=== PATIENT | female | born 1945 | race Caucasian/White ===

== ENCOUNTER 2019-08-09 01:35 | Emergency (ER) | payer BC ==
[~2019-08-09] VITALS: Ht 154.9 cm; Wt 77.1 kg
--- OUTSIDE RECORDS SUMMARY | ~2019-08-09 | XMS | Encounter Summary ---
Demographics + + + | Address | [address] | | | [place] [address] | + + + | Home Phone | | + + + | Preferred Language | Unknown | + + + | Marital Status | | + + + | Christian Affiliation | 1041 | + + + | Race | Unknown | + + + | Ethnic Group | Unknown | + + + Author + + + | Author | [facility] | | | and [place] | + + + | Organization | [facility] | | | and [place] | + + + | Address | Unknown | + + + | Phone | Unavailable | + + + Support + + +---------+ + | Name | Relationship | Address | Phone | + + +---------+ + | Jong Barajas | ECON | Unknown | | + + +---------+ + Care Team Providers + +------+ + | Care Computer Systems Information Director Name | Role | Phone | + +------+ + PCP | Unavailable | + +------+ + Encounter Details +--------+ + + + + | Date | Type | Department | Care Team | Description | +--------+ + + + + | 03/16/ | Hospital | [facility] | | | | 1994 - | Encounter | MED CTR DIETARY | | | | | | [address] | | | | 06/14/ | | [place] [address] | | | | 1995 | | [phone] | | | +--------+ + + + + Social History + +-------+ +--------+------+ | Tobacco Use | Types | Packs/Day | Years | Date | | | | | Used | | + +-------+ +--------+------+ | Never Assessed | | | | | + +-------+ +--------+------+ + + + | Sex Assigned at | Date Recorded | | | | + + + | Not on file | | + + + + + + + | Job Start Date | Occupation | Industry | + + + + | Not on file | Not on file | Not on file | + + + + + + + + | Travel History | Travel Start | Travel End | + + + + + + | No recent travel history available. | + + documented as of this encounter Plan of Treatment Not on filedocumented as of this encounter Visit Diagnoses Not on filedocumented in this encounter"
--- OUTSIDE RECORDS SUMMARY | ~2019-08-09 | XMS | Encounter Summary ---
Demographics + + + | Address | [address] | | | [place] [address] | + + + | Home Phone | | + + + | Preferred Language | Unknown | + + + | Marital Status | | + + + | Advent Affiliation | 1041 | + + + | Race | Unknown | + + + | Ethnic Group | Unknown | + + + Author + + + | Author | [facility] | | | and [place] | + + + | Organization | [facility] | | | and [place] | [...] Team Providers + +------+ + | Care Security Expert Name | Role | Phone | + +------+ + PCP | Unavailable | + +------+ + Encounter Details +--------+ + + + + | Date | Type | Department | Care Team | Description | +--------+ + + + + | 01/23/ | Hospital | [facility] | Edu Arroyo | | | 2010 | Encounter | HOSPITAL OR INTRA OP | [address] | | | | | [address] [place] | [address] [place] | | | | | [place], [place] | [place] [address] | | | | | [address] | [phone] | | | | | [phone] | | | +--------+ + + + [...]
--- OUTSIDE RECORDS SUMMARY | ~2019-08-09 | XMS | Encounter Summary ---
Demographics + + + | Address | [address] | | | [place] [address] | + + + | Home Phone | | + + + | Preferred Language | Unknown | + + + | Marital Status | | + + + | Faith Affiliation | 1041 | + + + | Race | Unknown | + + + | Ethnic Group | Unknown | + + + Author + + + | Author | [facility] | | | and [place] | + + + | Organization | [facility] | | | and [place] [...] Team Providers + +------+ + | Care On Air Director Name | Role | Phone | + +------+ + PCP | Unavailable | + +------+ + Encounter Details +--------+ + + + + | Date | Type | Department | Care Team | Description | +--------+ + + + + | 08/12/ | Hospital | [facility] | | | | 2009 | Encounter | MED CTR LABORATORY | | | | | | [address] | | | | | | [place] | | | | | | [address] | | | | | | [phone] | | | +--------+ + + + [...]
--- OUTSIDE RECORDS SUMMARY | ~2019-08-09 | XMS | Encounter Summary ---
Demographics + + + | Address | [address] | | | [place] [address] | + + + | Home Phone | | + + + | Preferred Language | Unknown | + + + | Marital Status | | + + + | Nondenominational Affiliation | 1041 | + + + | Race | Unknown | + + + | Ethnic Group | Unknown | + + + Author + + + | Author | [facility] | | | and [place] | + + + | Organization | [facility] | | | and [...] Team Providers + +------+ + | Care Cross Country/Track And Field Coach Name | Role | Phone | + +------+ + PCP | Unavailable | + +------+ + Encounter Details +--------+ + + + + | Date | Type | Department | Care Team | Description | +--------+ + + + + | 01/04/ | Hospital | [facility] | Blair Miller | | | 1996 - | Encounter | MED CTR GENERIC OP | MD Sunny [address] | | | | | CONV DEPT [address] | [facility] | | | 04/04/ | | [place], | [place] [address] | | | 1996 | | [place] [address] | [phone] | | | | | [phone] | | | +--------+ + + + [...]
--- OUTSIDE RECORDS SUMMARY | ~2019-08-09 | XMS | Encounter Summary ---
Demographics + + + | Address | [address] | | | [place] [address] | + + + | Home Phone | | + + + | Preferred Language | Unknown | + + + | Marital Status | | + + + | Catholic Affiliation | 1041 | + + + | Race | Unknown | + + + | Ethnic Group | Unknown | + + + Author + + + | Author | [facility] | | | and [place] | + + + | Organization | [facility] | | | and [place] | + + + | Address | Unknown | + + + | Phone | Unavailable | + + + Support + + +---------+ + | Name | Relationship | Address | Phone | + + +---------+ + | Jnog Barajas | ECON | Unknown | | + + +---------+ + Care Team Providers + +------+ + | Care High Court Justice Name | Role | Phone | + +------+ + PCP | Unavailable | + +------+ + Encounter Details +--------+ + + + + | Date | Type | Department | Care Team | Description | +--------+ + + + + | 05/11/ | [facility] | [facility] | Blair Miller | | | 2004 | Encounter | MED CTR SLEEP | MD Sunny [address] | | | | | [place] [address] | [facility] | | | | | [place] | [place] [address] | | | | | [address] | [phone] | | | | | [phone] | | | +--------+ + + + [...]
--- OUTSIDE RECORDS SUMMARY | ~2019-08-09 | XMS | Encounter Summary ---
Demographics + + + | Address | [address] | | | [place] [address] | + + + | Home Phone | | + + + | Preferred Language | Unknown | + + + | Marital Status | | + + + | Mandaen Affiliation | 1041 | + + + | Race | Unknown | + + + | Ethnic Group | Unknown | + + + Author + + + | Author | [facility] | | | and [place] | + + + | Organization | [facility] | | | and [place] | [...] Team Providers + +------+ + | Care Medical Records Clerk Name | Role | Phone | + +------+ + PCP | Unavailable | + +------+ + Encounter Details +--------+ + + + + | Date | Type | Department | Care Team | Description | +--------+ + + + + | 08/09/ | [facility] | [facility] | Blair Miller | | | 1996 | Encounter | MED CTR SLEEP | MD Sunny [address] | | | | | [place] [address] | [facility] | | | | | [place] | [place] [address] | | | | | [address] | [phone] | | | | | [phone] | | | +--------+ + + + [...]
--- OUTSIDE RECORDS SUMMARY | ~2019-08-09 | XMS | Encounter Summary ---
Demographics + + + | Address | [address] | | | [place] [address] | + + + | Home Phone | | + + + | Preferred Language | Unknown | + + + | Marital Status | | + + + | Moravian Affiliation | 1041 | + + + | Race | Unknown | + + + | Ethnic Group | Unknown | + + + Author + + + | Author | [facility] | | | and [place] | + + + | Organization | [facility] | | | and [place] [...] Team Providers + +------+ + | Care Assistant Women'S Basketball Coach Name | Role | Phone | + +------+ + PCP | Unavailable | + +------+ + Encounter Details +--------+ + + + + | Date | Type | Department | Care Team | Description | +--------+ + + + + | 02/18/ | [facility] | [facility] | [place], | | | 2008 | Encounter | MED CTR XRAY [address] | [address] [facility] | | | | | [address] | [place] | | | | | [place] [address] | [address] | | | | | [phone] | | | +--------+ + + + [...]
--- OUTSIDE RECORDS SUMMARY | ~2019-08-09 | XMS | Encounter Summary ---
Demographics + + + | Address | [address] | | | [place] [address] | + + + | Home Phone | | + + + | Preferred Language | Unknown | + + + | Marital Status | | + + + | Jewish Affiliation | 1041 | + + + | Race | Unknown | + + + | Ethnic Group | Unknown | + + + Author + + + | Author | [facility] | | | and [place] | + + + | Organization | [facility] | | | and [place] | [...] Team Providers + +------+ + | Care Equipment Operator Intermodal Yard Name | Role | Phone | + +------+ + PCP | Unavailable | + +------+ + Encounter Details +--------+ + + + + | Date | Type | Department | Care Team | Description | +--------+ + + + + | 12/16/ | Abstract | [facility] | DATA MIGRATION SERGIO | | | 2011 | | Conversion Location | SR | | | | | [facility] | | | | | | [place], [place] | | | | | | [address] | | | | | | [phone] | | | +--------+ + + + [...] + + documented as of this encounter Last Filed Vital Signs + + + + + | Vital Sign | Reading | Time Taken | Comments | + + + + + | Blood Pressure | - | - | | + + + + + | Pulse | - | - | | + + + + + | Temperature | - | - | | + + + + + | Respiratory Rate | - | - | | + + + + + | Oxygen Saturation | - | - | | + + + + + | Inhaled Oxygen | - | - | | | Concentration | | | | + + + + + | Weight | 83.9 kg (185 lb) | 12/04/2009 12:00 AM | | | | | PDT | | + + + + + | Height | 154.9 cm (5' 1") | 05/22/2009 12:00 AM | | | | | PST | | + + + + + | Body Mass Index | 34.96 | 05/22/2009 12:00 AM | | | | | PST | | + + + + + documented in this encounter Plan of Treatment Not on filedocumented as of this encounter Visit Diagnoses Not on filedocumented in this encounter
--- OUTSIDE RECORDS SUMMARY | ~2019-08-09 | XMS | Encounter Summary ---
Demographics + + + | Address | [address] | | | [place] [address] | + + + | Home Phone | | + + + | Preferred Language | Unknown | + + + | Marital Status | | + + + | Yazidi Affiliation | 1041 | + + + | Race | Unknown | + + + | Ethnic Group | Unknown | + + + Author + + + | Author | [facility] | | | and [place] | + + + | Organization | [facility] | | | and [place] | [...] Team Providers + +------+ + | Care Tannery Worker Name | Role | Phone | + +------+ + PCP | Unavailable | + +------+ + Encounter Details +--------+ + + + + | Date | Type | Department | Care Team | Description | +--------+ + + + + | 06/19/ | [facility] | [facility] | [place], | | | 2009 | Encounter | MED CTR XRAY [address] | [address] [facility] | | | | | [address] | [place] | | | | | [place] [address] | [address] | | | | | [phone] | | | +--------+ + + + [...]
--- OUTSIDE RECORDS SUMMARY | ~2019-08-09 | XMS | Clinical Summary ---
Demographics + + + | Address | [address] | | | [place] [address] | + + + | Home Phone | | + + + | Preferred Language | Unknown | + + + | Marital Status | | + + + | Anabaptism Affiliation | 1041 | + + + | Race | Unknown | + + + | Ethnic Group | Unknown | + + + Author + + + | Author | [facility] | | | and [place] | + + + | Organization | [facility] | | | and [...] Team Providers + +------+ + | Care Vitreo Retinal Surgeon Name | Role | Phone | + +------+ + PCP | Unavailable | + +------+ + Allergies + + + +--------+ + | Active Allergy | Reactions | Severity | Noted | Comments | | | | | Date | | + + + +--------+ + | Adhesive & Tape | | | | | + + + +--------+ + | Prochlorperazine | | | | | + + + +--------+ + Medications Not on file Active Problems Not on file Social History + +-------+ +--------+------+ | Tobacco [...] recent travel history available. | + + Last Filed Vital Signs + + + [...] | | + + + + + Plan of Treatment + + + + + | Health Maintenance | Due Date | Last Done | Comments | + + + + + | Vaccine: | | | | | Dtap/Tdap/Td (1 - | 4 | | | | Tdap) | | | | + + + + + | Vaccine: Zoster (1 | | | | | of 2) | 3 | | | + + + + + | Breast Cancer | | | | | Screening | 8 | | | + + + + + | Vaccine: | | | | | Pneumococcal 65+ (1 | 8 | | | | of 2 - PCV13) | | | | + + + + + | Vaccine: Influenza | | | | | (Season Ended) | 0 | | | + + + + + Results Not on filefrom Last 3 Months
--- OUTSIDE RECORDS SUMMARY | ~2019-08-09 | XMS | Encounter Summary ---
Demographics + + + | Address | [address] | | | [place] [address] | + + + | Home Phone | | + + + | Preferred Language | Unknown | + + + | Marital Status | | + + + | Jain Affiliation | 1041 | + + + | Race | Unknown | + + + | Ethnic Group | Unknown | + + + Author + + + | Author | [facility] | | | and [place] | + + + | Organization | [facility] | | | and [place] | + [...] Team Providers + +------+ + | Care Airline Manager Name | Role | Phone | + +------+ + PCP | Unavailable | + +------+ + Encounter Details +--------+ + + + + | Date | Type | Department | Care Team | Description | +--------+ + + + + | 03/27/ | [facility] | [facility] | [place], | | | 2008 | Encounter | MED CTR XRAY [address] | [address] [facility] | | | | | [address] | [place] | | | | | [place] [address] | [address] | | | | | [phone] | | | +--------+ + + + [...]
--- OUTSIDE RECORDS SUMMARY | ~2019-08-09 | XMS | Encounter Summary ---
Demographics + + + | Address | [address] | | | [place] [address] | + + + | Home Phone | | + + + | Preferred Language | Unknown | + + + | Marital Status | | + + + | Sikh Affiliation | 1041 | + + + | Race | Unknown | + + + | Ethnic Group | Unknown | + + + Author + + + | Author | [facility] | | | and [place] | + + + | Organization | [facility] | | | and [place] [...] Team Providers + +------+ + | Care Gerontological Nurse Practitioner Name | Role | Phone | + +------+ + PCP | Unavailable | + +------+ + Encounter Details +--------+ + + + + | Date | Type | Department | Care Team | Description | +--------+ + + + + | 08/28/ | [facility] | [facility] | [place], | | | 2009 | Encounter | MED CTR XRAY [address] | [address] [facility] | | | | | [address] | [place] | | | | | [place] [address] | [address] | | | | | [phone] | | | +--------+ + + + [...]
--- OUTSIDE RECORDS SUMMARY | ~2019-08-09 | XMS | Encounter Summary ---
Demographics + + + | Address | [address] | | | [place] [address] | + + + | Home Phone | | + + + | Preferred Language | Unknown | + + + | Marital Status | | + + + | Oriental Orthodox Affiliation | 1041 | + + + | Race | Unknown | + + + | Ethnic Group | Unknown | + + + Author + + + | Author | [facility] | | | and [place] | + + + | Organization | [facility] | | | and [place] [...] Team Providers + +------+ + | Care Homicide Detective Name | Role | Phone | + +------+ + PCP | Unavailable | + +------+ + Encounter Details +--------+ + + + + | Date | Type | Department | Care Team | Description | +--------+ + + + + | 01/13/ | Hospital | [facility] | Edu Arroyo | | | 2010 | Encounter | HOSPITAL LABORATORY | [address] | | | | | [address] [place] | [address] [place] | | | | | [place] | [place] [address] | | | | | [address] | [phone] | | | | | [phone] | | | +--------+ + + + [...]
--- OUTSIDE RECORDS SUMMARY | ~2019-08-09 | XMS | Encounter Summary ---
Demographics + + + | Address | [address] | | | [place] [address] | + + + | Home Phone | | + + + | Preferred Language | Unknown | + + + | Marital Status | | + + + | Latter Day Affiliation | 1041 | + + + | Race | Unknown | + + + | Ethnic Group | Unknown | + + + Author + + + | Author | [facility] | | | and [place] | + + + | Organization | [facility] | | | and [...] Team Providers + +------+ + | Care Sed Special Education Teacher Name | Role | Phone | + +------+ + PCP | Unavailable | + +------+ + Encounter Details +--------+ + + + + | Date | Type | Department | Care Team | Description | +--------+ + + + + | 05/12/ | [facility] | [facility] | Blair Miller | | | 2004 | Encounter | MED CTR SLEEP | MD Sunny [address] | | | | | [place] [address] | [place] [facility] | | | | | [place] | [place] [address] | | | | | [address] | [phone] | | | | | [phone] | | | +--------+ + + + [...]
--- OUTSIDE RECORDS SUMMARY | ~2019-08-09 | XMS | Encounter Summary ---
Demographics + + + | Address | [address] | | | [place] [address] | + + + | Home Phone | | + + + | Preferred Language | Unknown | + + + | Marital Status | | + + + | Church Affiliation | 1041 | + + + | Race | Unknown | + + + | Ethnic Group | Unknown | + + + Author + + + | Author | [facility] | | | and [place] | + + + | Organization | [facility] | | | and [place] [...] Team Providers + +------+ + | Care Pensions Retirement Plan Specialist Name | Role | Phone | + +------+ + PCP | Unavailable | + +------+ + Encounter Details +--------+ + + + + | Date | Type | Department | Care Team | Description | +--------+ + + + + | 04/02/ | Hospital | [facility] | [place], | | | 2008 - | Encounter | MED CTR GENERIC IP | MD [address] [facility] | | | | | CONV DEPT [address] | [place] | | | 04/05/ | | [place], | [address] | | | 2009 | | [place] [address] | | | | | | [phone] | | | +--------+ + + + [...]
--- OUTSIDE RECORDS SUMMARY | ~2019-08-09 | XMS | Encounter Summary ---
Demographics + + + | Address | [address] | | | [place] [address] | + + + | Home Phone | | + + + | Preferred Language | Unknown | + + + | Marital Status | | + + + | Confucianism Affiliation | 1041 | + + + | Race | Unknown | + + + | Ethnic Group | Unknown | + + + Author + + + | Author | [facility] | | | and [place] | + + + | Organization | [facility] | | | and [place] [...] Team Providers + +------+ + | Care Spray Crew Name | Role | Phone | + [...] | | [place] | [place] [address] | | | | | [address] | [phone] | | | | | [phone] | | | +--------+ + + + [...]
--- OUTSIDE RECORDS SUMMARY | ~2019-08-09 | XMS | Encounter Summary ---
Demographics + + + | Address | [address] | | | [place] [address] | + + + | Home Phone | | + + + | Preferred Language | Unknown | + + + | Marital Status | | + + + | Hinduism Affiliation | 1041 | + + + | Race | Unknown | + + + | Ethnic Group | Unknown | + + + Author + + + | Author | [facility] | | | and [place] | + + + | Organization | [facility] | | | and [place] [...] Team Providers + +------+ + | Care Chief Crna Name | Role | Phone | + +------+ + PCP | Unavailable | + +------+ + Encounter Details +--------+ + + + + | Date | Type | Department | Care Team | Description | +--------+ + + + + | 07/14/ | [facility] | [facility] | [place], | | | 2007 | Encounter | MED CTR XRAY [address] | [address] [facility] | | | | | [address] | [place] | | | | | [place] [address] | [address] | | | | | [phone] | | | +--------+ + + + [...]
--- OUTSIDE RECORDS SUMMARY | ~2019-08-09 | XMS | Encounter Summary ---
Demographics + + + | Address | [address] | | | [place] [address] | + + + | Home Phone | | + + + | Preferred Language | Unknown | + + + | Marital Status | | + + + | Restoration Affiliation | 1041 | + + + | Race | Unknown | + + + | Ethnic Group | Unknown | + + + Author + + + | Author | [facility] | | | and [place] | + + + | Organization | [facility] | | | and [place] [...] Team Providers + +------+ + | Care Resistor Coater Name | Role | Phone | + +------+ + PCP | Unavailable | + +------+ + Encounter Details +--------+ + + + + | Date | Type | Department | Care Team | Description | +--------+ + + + + | 07/26/ | [facility] | [facility] | Blair Miller | | | 1996 | Encounter | MED CTR SLEEP | MD Sunny [address] | | | | | [place] [address] [place] | [place] [facility] | | | | | [place] | [place] [address] | | | | | [address] | [phone] | | | | | [phone] | | | +--------+ + + + [...]
--- OUTSIDE RECORDS SUMMARY | ~2019-08-09 | XMS | Encounter Summary ---
Demographics + + + | Address | [address] | | | [place] [address] | + + + | Home Phone | | + + + | Preferred Language | Unknown | + + + | Marital Status | | + + + | Hindu Affiliation | 1041 | + + + | Race | Unknown | + + + | Ethnic Group | Unknown | + + + Author + + + | Author | [facility] | | | and [place] | + + + | Organization | [facility] and [facility] | | | and [place] [...] Team Providers + +------+ + | Care Wage And Salary Administrator Name | Role | Phone | + +------+ + PCP | Unavailable | + +------+ + Encounter Details +--------+ + + + + | Date | Type | Department | Care Team | Description | +--------+ + + + + | 03/30/ | [facility] | [place] | [place], | | | 2006 | Encounter | MED CTR LABORATORY | [facility] | | | | | [address] | [place] | | | | | [place] | [id number] | | | | | [address] | | | | | | [phone] | | | +--------+ + + + [...]
--- OUTSIDE RECORDS SUMMARY | ~2019-08-09 | XMS | Encounter Summary ---
Demographics + + + | Address | [address] | | | [place] [address] | + + + | Home Phone | | + + + | Preferred Language | Unknown | + + + | Marital Status | | + + + | Uatsdin Affiliation | 1041 | + + + | Race | Unknown | + + + | Ethnic Group | Unknown | + + + Author + + + | Author | [facility] | | | and [place] | + + + | Organization | [facility] | | | and [place] | + + + | Address | Unknown | + + + | Phone | Unavailable | + + + Support + + +---------+ + | Name | Relationship | Address | Phone | + + +---------+ + | Jong Baarjas | ECON | Unknown | | + + +---------+ + Care Team Providers + +------+ + | Care Boring Machine Operator Helper Name | Role | Phone | + +------+ + PCP | Unavailable | + +------+ + Encounter Details +--------+ + + + + | Date | Type | Department | Care Team | Description | +--------+ + + + + | 07/24/ | Hospital | [facility] | Dat [place]id[place], | | | 2009 | Encounter | MED CTR LABORATORY | MD Peters [facility] | | | | | [address] | [place] | | | | | [place] | [id number] | | | | | [address] | | | | | | [phone] | | | +--------+ + + + [...]
--- OUTSIDE RECORDS SUMMARY | ~2019-08-09 | XMS | Encounter Summary ---
Demographics + + + | Address | [address] | | | [place] [address] | + + + | Home Phone | | + + + | Preferred Language | Unknown | + + + | Marital Status | | + + + | Pentecostal Affiliation | 1041 | + + + | Race | Unknown | + + + | Ethnic Group | Unknown | + + + Author + + + | Author | [facility] | | | and [place] | + + + | Organization | [facility] | | | and [...] Team Providers + +------+ + | Care Lead Java J2Ee Developer Name | Role | Phone | + +------+ + PCP | Unavailable | + +------+ + Encounter Details +--------+ + + + + | Date | Type | Department | Care Team | Description | +--------+ + + + + | 05/11/ | [facility] | [facility] | Blair Miller | | | 2004 | Encounter | MED CTR SLEEP | MD [address] | | | | | [place] [address] | [place] [facility] | | | | | [place] | [place] [address] | | | | | [address] | [phone] | | | | | [phone] | | | +--------+ + + + [...]
--- OUTSIDE RECORDS SUMMARY | ~2019-08-09 | XMS | Encounter Summary ---
Demographics + + + | Address | [address] | | | [place] [address] | + + + | Home Phone | | + + + | Preferred Language | Unknown | + + + | Marital Status | | + + + | Anabaptist Affiliation | 1041 | + + + | Race | Unknown | + + + | Ethnic Group | Unknown | + + + Author + + + | Author | [facility] | | | and [place] | + + + | Organization | [facility] | | | and [...] Team Providers + +------+ + | Care Tricot Knitter Name | Role | Phone | + +------+ + PCP | Unavailable | + +------+ + Encounter Details +--------+ + + + + | Date | Type | Department | Care Team | Description | +--------+ + + + + | 07/30/ | Hospital | [facility] | [place], | | | 2009 - | Encounter | MED CTR GENERIC IP | MD [address] [facility] | | | | | CONV DEPT [address] | [place] | | | 08/02/ | | [address], | [address] | | | 2009 | | [place] [address] | | | | | | [phone] | | | +--------+ + + + [...]
--- OUTSIDE RECORDS SUMMARY | ~2019-08-09 | XMS | Encounter Summary ---
Demographics + + + | Address | [address] | | | [place] [address] | + + + | Home Phone | | + + + | Preferred Language | Unknown | + + + | Marital Status | | + + + | Christian Affiliation | 1041 | + + + | Race | Unknown | + + + | Ethnic Group | Unknown | + + + Author + + + | Author | [facility] | | | and [place] | + + + | Organization | [facility] | | | and [place] [...] Team Providers + +------+ + | Care Staking Engineer Name | Role | Phone | + +------+ + PCP | Unavailable | + +------+ + Encounter Details +--------+ + + + + | Date | Type | Department | Care Team | Description | +--------+ + + + + | 08/28/ | [facility] | [facility] | [place], | | | 2009 | Encounter | MED CTR XRAY [address] | [address] [facility] | | | | | [address] | [place] | | | | | [place] [address] | [address] | | | | | [phone] | | | +--------+ + + + [...]
--- OUTSIDE RECORDS SUMMARY | ~2019-08-09 | XMS | Encounter Summary ---
Demographics + + + | Address | [address] | | | [place] [address] | + + + | Home Phone | | + + + | Preferred Language | Unknown | + + + | Marital Status | | + + + | Adventism Affiliation | 1041 | + + + | Race | Unknown | + + + | Ethnic Group | Unknown | + + + Author + + + | Author | [facility] | | | and [place] | + + + | Organization | [facility] | [...] Team Providers + +------+ + | Care Rectangular Tank Cooper Name | Role | Phone | + +------+ + PCP | Unavailable | + +------+ + Encounter Details +--------+ + + + + | Date | Type | Department | Care Team | Description | +--------+ + + + + | 04/15/ | Hospital | [facility] | | | | 2009 | Encounter | MED CTR LABORATORY | | | | | | [address] | | | | | | [place] | | | | | | [address] | | | | | | [phone] | | | +--------+ + + + [...]
--- OUTSIDE RECORDS SUMMARY | ~2019-08-09 | XMS | Encounter Summary ---
Demographics + + + | Address | [address] | | | [place] [address] | + + + | Home Phone | | + + + | Preferred Language | Unknown | + + + | Marital Status | | + + + | Yarsani Affiliation | 1041 | + + + | Race | Unknown | + + + | Ethnic Group | Unknown | + + + Author + + + | Author | [facility] | | | and [place] | + + + | Organization | [facility] | | | and [place] [...] Team Providers + +------+ + | Care Yarn Texture Machine Operator Name | Role | Phone | + +------+ + PCP | Unavailable | + +------+ + Encounter Details +--------+ + + + + | Date | Type | Department | Care Team | Description | +--------+ + + + + | 02/18/ | [facility] | [facility] | [place], | | | 2008 | Encounter | MED CTR XRAY [address] | [address] [facility] | | | | | [address] | [place] | | | | | [place] [address] | [address] | | | | | [phone] | | | +--------+ + + + [...]
--- OUTSIDE RECORDS SUMMARY | ~2019-08-09 | XMS | Clinical Summary ---
Demographics + + + | Address | [address] | | | [place] [address] | + + + | Home Phone | | + + + | Preferred Language | Unknown | + + + | Marital Status | | + + + | Scientologist Affiliation | 1041 | + + + | Race | Unknown | + + + | Ethnic Group | Unknown | + + + Author + + + | Author | [facility] | | | and [place] | + + + | Organization | [facility] | | | and [place] | [...] Team Providers + +------+ + | Care Entry Level Project Engineer Name | Role | Phone | [...]
--- OUTSIDE RECORDS SUMMARY | ~2019-08-09 | XMS | Encounter Summary ---
Demographics + + + | Address | [address] | | | [place] [address] | + + + | Home Phone | | + + + | Preferred Language | Unknown | + + + | Marital Status | | + + + | Spiritism Affiliation | 1041 | + + + | Race | Unknown | + + + | Ethnic Group | Unknown | + + + Author + + + | Author | [facility] | | | and [place] | + + + | Organization | [facility] | | | and [...] Team Providers + +------+ + | Care Pmo Business Analyst Name | Role | Phone | + +------+ + PCP | Unavailable | + +------+ + Encounter Details +--------+ + + + + | Date | Type | Department | Care Team | Description | +--------+ + + + + | 02/03/ | Hospital | [facility] | Taras Amezcua, | | | 2003 | Encounter | HEART MED CTR | MD [address] | | | | | LABORATORY [address] | [address] [address] | | | | | [address] [place], [place] | [address] | | | | | [address] | [phone] | | | | | [phone] | | | +--------+ + + + [...]
--- OUTSIDE RECORDS SUMMARY | ~2019-08-09 | XMS | Encounter Summary ---
Demographics + + + | Address | [address] | | | [place] [address] | + + + | Home Phone | | + + + | Preferred Language | Unknown | + + + | Marital Status | | + + + | Mu-Ism Affiliation | 1041 | + + + | Race | Unknown | + + + | Ethnic Group | Unknown | + + + Author + + + | Author | [facility] | | | and [place] | + + + | Organization | [facility] | [...] Team Providers + +------+ + | Care Development Administrator Name | Role | Phone | + +------+ + PCP | Unavailable | + +------+ + Encounter Details +--------+ + + + + | Date | Type | Department | Care Team | Description | +--------+ + + + + | 06/19/ | [facility] | [facility] | [place], | | | 2009 | Encounter | MED CTR XRAY [address] | [address] [facility] | | | | | [address] | [place] | | | | | [place] [address] | [address] | | | | | [phone] | | | +--------+ + + + [...]
--- OUTSIDE RECORDS SUMMARY | ~2019-08-09 | XMS | Encounter Summary ---
Demographics + + + | Address | [address] | | | [place] [address] | + + + | Home Phone | | + + + | Preferred Language | Unknown | + + + | Marital Status | | + + + | Mosque Affiliation | 1041 | + + + | Race | Unknown | + + + | Ethnic Group | Unknown | + + + Author + + + | Author | [facility] | | | and [place] | + + + | Organization | [facility] | | | and [...] Team Providers + +------+ + | Care Flow Manager Name | Role | Phone | + +------+ + PCP | Unavailable | + +------+ + Encounter Details +--------+ + + + + | Date | Type | Department | Care Team | Description | +--------+ + + + + | 04/08/ | Hospital | [facility] | Taras Moy, | | | 2004 - | Encounter | HEART MED CTR | MD [address] | | | | | ORTHOPEDICS [address] | [address] [place] | | | 04/12/ | | [address] [place], [place] | [address] | | | 2004 | | [address] | [phone] | | | | | [phone] | | | +--------+ + + + [...] Not on filedocumented as of this encounter Procedures + +--------+ + + + | Procedure Name | Priori | Date/Time | Associated Diagnosis | Comments | | | ty | | | | + +--------+ + + + | SURGICAL PATHOLOGY | Routin | 04/08/2004 | | Results for this | | EXAM | e | 12:00 AM | | procedure are in the | | | | PST | | results section. | + +--------+ + + + documented in this encounter Results Surgical Pathology Exam (04/08/2004 12:00 AM PST) + + | Specimen | + + | | + + + + + | Narrative | Performed At | + + + | SURGICAL PATHOLOGY REPORT | [facility] | | Date Taken: 04/08/2004 Date Received: 04/08/2004 | | | Completed: 04/09/2004 Physician: TARAS MOY Copy to: | | | DIAGNOSIS: Cholecystectomy: Chronic cholecystitis. 0 Chad | | | Cristela Sierra M.D. Electronic signature GROSS DESCRIPTION: The | | | specimen labeled "gallbladder" is received in formalin and consists | | | of a 7.2 x 2.0 x 1.1 cm pink-villalobos to extensively violaceous collapsed | | | gallbladder with a glistening wrinkled serosa. The gallbladder wall | | | is pliable up to 0.2 cm in thickness and is lined by a dark | | | orange-villalobos extensively hemorrhagic mucosa. No stones are | | | identified. Card Assembler sections in one block. (PK) | | | 1: [address] [address] [address] [place] [address] (536) | | | [phone] or Testing performed at: [place] | | | [facility] Bill Solano M.D., | | | Director [address] [place] [address] [address] [place] [address] Phone: | | | | | + + + + + + + + | Performing | Address | City/State/Zipcode | Phone Number | | Organization | | | | + + + + + | [facility] | [address] [place] [address]. | [place] [address] | | | [facility] | | | | | LABORATORY | | | | + + + + + | [place] | | | | + + + + + documented in this encounter Visit Diagnoses Not on filedocumented in this encounter
--- OUTSIDE RECORDS SUMMARY | ~2019-08-09 | XMS | Encounter Summary ---
Demographics + + + | Address | [address] | | | [place] [address] | + + + | Home Phone | | + + + | Preferred Language | Unknown | + + + | Marital Status | | + + + | Zoroastrian Affiliation | 1041 | + + + | Race | Unknown | + + + | Ethnic Group | Unknown | + + + Author + + + | Author | [facility] | | | and [place] | + + + | Organization | [facility] | | | and [place] [...] Team Providers + +------+ + | Care Charge Master Coordinator Name | Role | Phone | + +------+ + PCP | Unavailable | + +------+ + Encounter Details +--------+ + + + + | Date | Type | Department | Care Team | Description | +--------+ + + + + | 01/04/ | Hospital | [facility] | Blair Miller | | | 1996 - | Encounter | MED CTR GENERIC OP | MD Sunny [address] | | | | | CONV DEPT [address] | [place] [facility] | | | 04/04/ | | [place], | [place] [address] | | | 1996 | | [place] [address] | [phone] | | | | | [phone] | | | +--------+ + + + [...]
--- OUTSIDE RECORDS SUMMARY | ~2019-08-09 | XMS | Encounter Summary ---
Demographics + + + | Address | [address] | | | [place] [address] | + + + | Home Phone | | + + + | Preferred Language | Unknown | + + + | Marital Status | | + + + | Religion Affiliation | 1041 | + + + | Race | Unknown | + + + | Ethnic Group | Unknown | + + + Author + + + | Author | [facility] | | | and [place] | + + + | Organization | [facility] | | | and [...] Team Providers + +------+ + | Care Supervisor Laboratory Animal Facility Name | Role | Phone | + +------+ + PCP | Unavailable | + +------+ + Encounter Details +--------+ + + + + | Date | Type | Department | Care Team | Description | +--------+ + + + + | 02/24/ | Hospital | [facility] | Aubrey Langford, | | | 1990 - | Encounter | SYSTEM GENERIC OP | MD [address] [facility] | | | | | CONVERSION [address] | [address] [place], | | | 02/25/ | | [address] [place], [place] | [place] [address] | | | 1990 | | [address] | [phone] | | | | | [phone] | (Fax) | | +--------+ + + + + [...]
--- OUTSIDE RECORDS SUMMARY | ~2019-08-09 | XMS | Encounter Summary ---
Demographics + + + | Address | [address] | | | [place] [address] | + + + | Home Phone | | + + + | Preferred Language | Unknown | + + + | Marital Status | | + + + | Orthodoxy Affiliation | 1041 | + + + | Race | Unknown | + + + | Ethnic Group | Unknown | + + + Author + + + | Author | [facility] | | | and [place] | + + + | Organization | [facility] | | | and [place] [...] Providers + +------+ + | Care Chief Psychology Name | Role | Phone | + +------+ + PCP | Unavailable | + +------+ + Encounter Details +--------+ + + + + | Date | Type | Department | Care Team | Description | +--------+ + + + + | 02/24/ | Hospital | [facility] | Aubrey Langford, | | | 1990 - | Encounter | SYSTEM GENERIC OP | MD [address] [facility] | | | | | CONVERSION [address] | [address] [place], | | | 02/25/ | | [address] [place], [place] | [place] [address] | | | 1992 | | [address] | [phone] | | | | | [phone] | (Fax) | | +--------+ + + [...]
--- OUTSIDE RECORDS SUMMARY | ~2019-08-09 | XMS | Encounter Summary ---
Demographics + + + | Address | [address] | | | [place] [address] | + + + | Home Phone | | + + + | Preferred Language | Unknown | + + + | Marital Status | | + + + | Mandaen Affiliation | 1041 | + + + | Race | Unknown | + + + | Ethnic Group | Unknown | + + + Author + + + | Author | [facility] | | | and [place] | + + + | Organization | [facility] | | | and [place] | [...] Team Providers + +------+ + | Care Materials Scientist Name | Role | Phone | + +------+ + PCP | Unavailable | + +------+ + Encounter Details +--------+ + + + + | Date | Type | Department | Care Team | Description | +--------+ + + + + | 07/24/ | Hospital | [facility] | Dat Isidro, | | | 2009 | Encounter | MED CTR LABORATORY | MD Peters [facility] | | | | | [address] | [place] | | | | | [place] | [address] | | | | | [address] | | | | | | [phone] | | | +--------+ + + + [...]
--- OUTSIDE RECORDS SUMMARY | ~2019-08-09 | XMS | Encounter Summary ---
Demographics + + + | Address | [address] | | | [place] [address] | + + + | Home Phone | | + + + | Preferred Language | Unknown | + + + | Marital Status | | + + + | Synagogue Affiliation | 1041 | + + + | Race | Unknown | + + + | Ethnic Group | Unknown | + + + Author + + + | Author | [facility] | | | and [place] | + + + | Organization | [facility] | | | and [place] [...] Team Providers + +------+ + | Care Carbon Furnace Operator Name | Role | Phone | + +------+ + PCP | Unavailable | + +------+ + Encounter Details +--------+ + + + + | Date | Type | Department | Care Team | Description | +--------+ + + + + | 07/26/ | [facility] | [facility] | Blair Miller | | | 1996 | Encounter | MED CTR SLEEP | MD [address] | | | | | [place] [address] [place] | [place] [facility] | | | | | [place] | [place] [address] | | | | | [address] | [phone] | | | | | [phone] | | | +--------+ + + + [...]
--- OUTSIDE RECORDS SUMMARY | ~2019-08-09 | XMS | Encounter Summary ---
Demographics + + + | Address | [address] | | | [place] [address] | + + + | Home Phone | | + + + | Preferred Language | Unknown | + + + | Marital Status | | + + + | Yazidi Affiliation | 1041 | + + + | Race | Unknown | + + + | Ethnic Group | Unknown | + + + Author + + + | Author | [facility] | | | and [place] | + + + | Organization | [facility] | | | and [place] [...] Team Providers + +------+ + | Care Wound Specialist Name | Role | Phone | + +------+ + PCP | Unavailable | + +------+ + Encounter Details +--------+ + + + + | Date | Type | Department | Care Team | Description | +--------+ + + + + | 08/12/ | Hospital | [facility] | | | | 2009 | Encounter | MED CTR LABORATORY | | | | | | [address] | | | | | | [place] | | | | | | [address] | | | | | | [phone] | | | +--------+ + + + [...]
--- OUTSIDE RECORDS SUMMARY | ~2019-08-09 | XMS | Encounter Summary ---
Demographics + + + | Address | [address] | | | [place] [address] | + + + | Home Phone | | + + + | Preferred Language | Unknown | + + + | Marital Status | | + + + | Jew Affiliation | 1041 | + + + | Race | Unknown | + + + | Ethnic Group | Unknown | + + + Author + + + | Author | and [facility] | | | and [place] | + + + | Organization | [facility] | | | and [place] [...] Team Providers + +------+ + | Care Pecan Gatherer Name | Role | Phone | + +------+ + PCP | Unavailable | + +------+ + Encounter Details +--------+ + + + + | Date | Type | Department | Care Team | Description | +--------+ + + + + | 02/03/ | Hospital | [facility] | Taras Amezcua, | | | 2003 | Encounter | HEART MED CTR | MD [address] | | | | | LABORATORY [address] | [address] [place] | | | | | [address] [place], [place] | [address] | | | | | [address] | [phone] | | | | | [phone] | | | +--------+ + + + [...]
--- OUTSIDE RECORDS SUMMARY | ~2019-08-09 | XMS | Encounter Summary ---
Demographics + + + | Address | [address] | | | [place] [address] | + + + | Home Phone | | + + + | Preferred Language | Unknown | + + + | Marital Status | | + + + | Samaritan Affiliation | 1041 | + + + | Race | Unknown | + + + | Ethnic Group | Unknown | + + + Author + + + | Author | [facility] | | | and [place] | + + + | Organization | [facility] | | | and [place] | [...] Team Providers + +------+ + | Care Adult Probation Officer Name | Role | Phone | + +------+ + PCP | Unavailable | + +------+ + Encounter Details +--------+ + + + + | Date | Type | Department | Care Team | Description | +--------+ + + + + | 01/04/ | [facility] | [facility] | Blair Miller | | | 1996 | Encounter | MED CTR SLEEP | MD [address] | | | | | [place] [address] | [place] [facility] | | | | | [place] | [place] [address] | | | | | [address] | [phone] | | | | | [phone] | | | +--------+ + + + [...]
--- OUTSIDE RECORDS SUMMARY | ~2019-08-09 | XMS | Encounter Summary ---
Demographics + + + | Address | [address] | | | [place] [address] | + + + | Home Phone | | + + + | Preferred Language | Unknown | + + + | Marital Status | | + + + | Protestant Affiliation | 1041 | + + + | Race | Unknown | + + + | Ethnic Group | Unknown | + + + Author + + + | Author | [facility] | | | and [place] | + + + | Organization | [facility] | | | and [...] Team Providers + +------+ + | Care Systems Mechanic Name | Role | Phone | + +------+ + PCP | Unavailable | + +------+ + Encounter Details +--------+ + + + + | Date | Type | Department | Care Team | Description | +--------+ + + + + | 04/08/ | Hospital | [facility] | Taras Moy, | | | 2004 - | Encounter | HEART MED CTR | MD [address] | | | | | ORTHOPEDICS [address] | [address] [place] | | | 04/12/ | | [address] [place], [place] | [address] | | | 2004 | | [address] | [phone] | | | | | [phone] | | | +--------+ + + + [...] | SURGICAL PATHOLOGY REPORT | [facility] | | Date Taken: 04/08/2004 Date Received: [...] No stones are | | | identified. Footwear Sales Leader sections in one block. (PK) | | | 1: [address] [address] [address] [place] [address] (562) | | | [phone] or Testing performed at: [place] | | | [facility] Bill Solano M.D., | | | Director [address] [place] [address] [address] [place] [address] Phone: | | | | | + + + + + + + + | Performing | Address | City/State/Zipcode | Phone Number | | Organization | | | | + + + + + | [facility] | [address] [place] [address]. | [place] [address] | | | [facility] | | | | | LABORATORY | | | | + + + + + | [place] | | | | + + + + + documented in this encounter Visit Diagnoses Not on filedocumented in this encounter
--- OUTSIDE RECORDS SUMMARY | ~2019-08-09 | XMS | Encounter Summary ---
Demographics + + + | Address | [address] | | | [place] [address] | + + + | Home Phone | | + + + | Preferred Language | Unknown | + + + | Marital Status | | + + + | Advent Affiliation | 1041 | + + + | Race | Unknown | + + + | Ethnic Group | Unknown | + + + Author + + + | Author | [facility] | | | and [place] | + + + | Organization | [facility] | | | and [place] [...] Team Providers + +------+ + | Care Roller Structural Mill Name | Role | Phone | + +------+ + PCP | Unavailable | + +------+ + Encounter Details +--------+ + + + + | Date | Type | Department | Care Team | Description | +--------+ + + + + | 03/30/ | [facility] | [facility] | [place], | | | 2006 | Encounter | MED CTR LABORATORY | MD Peters [facility] | | | | | [address] | [place] | | | | | [place] | [id number] | | | | | [address] | | | | | | [phone] | | | +--------+ + + + [...]
--- OUTSIDE RECORDS SUMMARY | ~2019-08-09 | XMS | Encounter Summary ---
Demographics + + + | Address | [address] | | | [place] [address] | + + + | Home Phone [...] + | Author | [facility] | | | and [place] | + + + | Organization | [facility] | | | and [place] | [...] Team Providers + +------+ + | Care Lyft Driver Name | Role | Phone | + +------+ + PCP | Unavailable | + +------+ + Encounter Details +--------+ + + + + | Date | Type | Department | Care Team | Description | +--------+ + + + + | 04/02/ | Hospital | [facility] | [place], | | | 2008 - | Encounter | MED CTR GENERIC IP | MD [address] [facility] | | | | | CONV DEPT [address] | [place] | | | 04/05/ | | [place], | [address] | | | 2009 | | [place] [address] | | | | | | [phone] | | | +--------+ + + + [...]
--- OUTSIDE RECORDS SUMMARY | ~2019-08-09 | XMS | Encounter Summary ---
Demographics + + + | Address | [address] | | | [place] [address] | + + + | Home Phone | | + + + | Preferred Language | Unknown | + + + | Marital Status | | + + + | Christianity Affiliation | 1041 | + + + | Race | Unknown | + + + | Ethnic Group | Unknown | + + + Author + + + | Author | [facility] | | | and [place] | + + + | Organization | [facility] | | | and [...] Team Providers + +------+ + | Care Time Piece Repairer Name | Role | Phone | + +------+ + PCP | Unavailable | + +------+ + Encounter Details +--------+ + + + + | Date | Type | Department | Care Team | Description | +--------+ + + + + | 03/27/ | [facility] | [facility] | [place], | | | 2008 | Encounter | MED CTR XRAY [address] | [address] [facility] | | | | | [address] | [place] | | | | | [place] [address] | [address] | | | | | [phone] | | | +--------+ + + + [...]
--- OUTSIDE RECORDS SUMMARY | ~2019-08-09 | XMS | Encounter Summary ---
Demographics + + + | Address | [address] | | | [place] [address] | + + + | Home Phone | | + + + | Preferred Language | Unknown | + + + | Marital Status | | + + + | Caodaism Affiliation | 1041 | + + + | Race | Unknown | + + + | Ethnic Group | Unknown | + + + Author + + + | Author | [facility] | | | and [place] | + + + | Organization | [facility] and [facility] | | | and [place] [...] Team Providers + +------+ + | Care Sales Support Administrator Name | Role | Phone | [...] | | [place], [place] | [place] [address] | | | | | [address] | [phone] | | | | | [phone] | | | +--------+ + + + [...]
--- OUTSIDE RECORDS SUMMARY | ~2019-08-09 | XMS | Encounter Summary ---
Demographics + + + | Address | [address] | | | [place] [address] | + + + | Home Phone | | + + + | Preferred Language | Unknown | + + + | Marital Status | | + + + | Anglican Affiliation | 1041 | + + + | Race | Unknown | + + + | Ethnic Group | Unknown | + + + Author + + + | Author | [facility] | | | and [place] | + + + | Organization | [facility] | | | and [place] | [...] Team Providers + +------+ + | Care Atv Mechanic Name | Role | Phone | + +------+ + PCP | Unavailable | + +------+ + Encounter Details +--------+ + + + + | Date | Type | Department | Care Team | Description | +--------+ + + + + | 07/14/ | [facility] | [facility] | [place], | | | 2007 | Encounter | MED CTR XRAY [address] | [address] [facility] | | | | | [address] | [place] | | | | | [place] [address] | [address] | | | | | [phone] | | | +--------+ + + + [...]
--- OUTSIDE RECORDS SUMMARY | ~2019-08-09 | XMS | Encounter Summary ---
Demographics + + + | Address | [address] | | | [place] [address] | + + + | Home Phone | | + + + | Preferred Language | Unknown | + + + | Marital Status | | + + + | Scientology Affiliation | 1041 | + + + | Race | Unknown | + + + | Ethnic Group | Unknown | + + + Author + + + | Author | [facility] | | | and [place] | + + + | Organization | [facility] | | | and [place] [...] Team Providers + +------+ + | Care Hand Router Operator Name | Role | Phone | [...] | | | | | VERA MCDERM[facility] | | | | | | [place], [place] | | | | | | [address] | | | | | | [phone] | | | +--------+ + + + [...]
--- OUTSIDE RECORDS SUMMARY | ~2019-08-09 | XMS | Encounter Summary ---
Demographics + + + | Address | [address] | | | [place] [address] | + + + | Home Phone | | + + + | Preferred Language | Unknown | + + + | Marital Status | | + + + | Voodoo Affiliation | 1041 | + + + | Race | Unknown | + + + | Ethnic Group | Unknown | + + + Author + + + | Author | [facility] | | | and [place] | + + + | Organization | [facility] | | | and [place] [...] Providers + +------+ + | Care Computer Information Systems Professor Name | Role | Phone | + +------+ + PCP | Unavailable | + +------+ + Encounter Details +--------+ + + + + | Date | Type | Department | Care Team | Description | +--------+ + + + + | 08/09/ | [facility] | [facility] | [place] | | | 1996 | Encounter | MED CTR SLEEP | MD Sunny [address] | | | | | [place] [address] | [facility] | | | | | [place] | [place] [address] | | | | | [address] | [phone] | | | | | [phone] | | | +--------+ + + + [...]
--- OUTSIDE RECORDS SUMMARY | ~2019-08-09 | XMS | Encounter Summary ---
Demographics + + + | Address | [address] | | | [place] [address] | + + + | Home Phone | | + + + | Preferred Language | Unknown | + + + | Marital Status | | + + + | Congregation Affiliation | 1041 | + + + | Race | Unknown | + + + | Ethnic Group | Unknown | + + + Author + + + | Author | [facility] | | | and [place] | + + + | Organization | [facility] | | | and [...] Team Providers + +------+ + | Care Highballer Name | Role | Phone | + +------+ + PCP | Unavailable | + +------+ + Encounter Details +--------+ + + + + | Date | Type | Department | Care Team | Description | +--------+ + + + + | 04/12/ | Hospital | [facility] | [place], | | | 2007 | Encounter | MED CTR MP INTRA OP | [address] [facility] | | | | | [address] | [place] | | | | | [place] | [address] | | | | | [address] | | | | | | [phone] | | | +--------+ + + + [...]
--- OUTSIDE RECORDS SUMMARY | ~2019-08-09 | XMS | Encounter Summary ---
Demographics + + + | Address | [address] | | | [place] [address] | + + + | Home Phone | | + + + | Preferred Language | Unknown | + + + | Marital Status | | + + + | Yarsanism Affiliation | 1041 | + + + | Race | Unknown | + + + | Ethnic Group | Unknown | + + + Author + + + | Author | [facility] | | | and [place] | + + + | Organization | [facility] and [facility] | | | and [...] Team Providers + +------+ + | Care Roastmaster Name | Role | Phone | + +------+ + PCP | Unavailable | + +------+ + Encounter Details +--------+ + + + + | Date | Type | Department | Care Team | Description | +--------+ + + + + | 04/12/ | Hospital | [facility] | [place], | | | 2007 | Encounter | MED CTR MP INTRA OP | [address] [facility] | | | | | [address] | [place] | | | | | [place] | [id number] | | | | | [address] | | | | | | [phone] | | | +--------+ + + + [...]
--- OUTSIDE RECORDS SUMMARY | ~2019-08-09 | XMS | Encounter Summary ---
Demographics + + + | Address | [address] | | | [place] [address] | + + + | Home Phone | | + + + | Preferred Language | Unknown | + + + | Marital Status | | + + + | Mandaeism Affiliation | 1041 | + + + | Race | Unknown | + + + | Ethnic Group | Unknown | + + + Author + + + | Author | [facility] | | | and [place] | + + + | Organization | [facility] and [facility] | | | and [place] [...] Team Providers + +------+ + | Care An/Syq 13 Nav/C2 Operator Name | Role | Phone | + +------+ + PCP | Unavailable | + +------+ + Encounter Details +--------+ + + + + | Date | Type | Department | Care Team | Description | +--------+ + + + + | 01/04/ | [facility] | [facility] | [place] | | | 1996 | Encounter | MED CTR SLEEP | MD Sunny [address] | | | | | [place] [address] | [facility] | | | | | [place] | [place] [address] | | | | | [address] | [phone] | | | | | [phone] | | | +--------+ + + + [...]
--- OUTSIDE RECORDS SUMMARY | ~2019-08-09 | XMS | Encounter Summary ---
Demographics + + + | Address | [address] | | | [place] [address] | + + + | Home Phone | | + + + | Preferred Language | Unknown | + + + | Marital Status | | + + + | Yarsanism Affiliation | 1041 | + + + | Race | Unknown | + + + | Ethnic Group | Unknown | + + + Author + + + | Author | [facility] | | | and [place] | + + + | Organization | [facility] | | | and [place] [...] Team Providers + +------+ + | Care Delivery Crew Worker Name | Role | Phone | + +------+ + PCP | Unavailable | + +------+ + Encounter Details +--------+ + + + + | Date | Type | Department | Care Team | Description | +--------+ + + + + | 07/30/ | Hospital | [facility] | [place], | | | 2009 - | Encounter | MED CTR GENERIC IP | MD [address] [facility] | | | | | CONV DEPT [address] | [place] | | | 08/02/ | | [place], | [address] | | | 2009 | | [place] [address] | | | | | | [phone] | | | +--------+ + + + [...]
--- OUTSIDE RECORDS SUMMARY | ~2019-08-09 | XMS | Encounter Summary ---
Demographics + + + | Address | [address] | | | [place] [address] | + + + | Home Phone | | + + + | Preferred Language | Unknown | + + + | Marital Status | | + + + | Jain Affiliation | 1041 | + + + | Race | Unknown | + + + | Ethnic Group | Unknown | + + + Author + + + | Author | [facility] | | | and [place] | + + + | Organization | [facility] [...] Team Providers + +------+ + | Care Refrigerator Repairman Name | Role | Phone | + +------+ + PCP | Unavailable | + +------+ + Encounter Details +--------+ + + + + | Date | Type | Department | Care Team | Description | +--------+ + + + + | 03/16/ | Hospital | [facility] | | | | 1994 - | Encounter | MED CTR DIETARY | | | | | | [address] | | | | 06/14/ | | [place] [address] | | | | 1995 | | [phone] | | | +--------+ + + + [...]
--- OUTSIDE RECORDS SUMMARY | ~2019-08-09 | XMS | Encounter Summary ---
Demographics + + + | Address | [address] | | | [place] [address] | + + + | Home Phone | | + + + | Preferred Language | Unknown | + + + | Marital Status | | + + + | Congregation Affiliation | 1041 | + + + | Race | Unknown | + + + | Ethnic Group | Unknown | + + + Author + + + | Author | [facility] | | | and [place] | + + + | Organization | [facility] | | [...] Team Providers + +------+ + | Care Perishable Fruit Inspector Name | Role | Phone | + +------+ + PCP | Unavailable | + +------+ + Encounter Details +--------+ + + + + | Date | Type | Department | Care Team | Description | +--------+ + + + + | 05/12/ | [facility] | [facility] | [place] | | | 2004 | Encounter | MED CTR SLEEP | MD Sunny [address] | | | | | [place] [address] | [facility] | | | | | [place] | [place] [address] | | | | | [address] | [phone] | | | | | [phone] | | | +--------+ + + + [...]
--- OUTSIDE RECORDS SUMMARY | ~2019-08-09 | XMS | Encounter Summary ---
Demographics + + + | Address | [address] | | | [place] [address] | + + + | Home Phone | | + + + | Preferred Language | Unknown | + + + | Marital Status | | + + + | Orthodox Affiliation | 1041 | + + + | Race | Unknown | + + + | Ethnic Group | Unknown | + + + Author + + + | Author | and Services [facility] | | | and [place] | + + + | Organization | and [facility] | | | [...] Team Providers + +------+ + | Care Boom Cat Operator Name | Role | Phone | + +------+ + PCP | Unavailable | + +------+ + Encounter Details +--------+ + + + + | Date | Type | Department | Care Team | Description | +--------+ + + + + | 04/15/ | Hospital | [facility] | | | | 2009 | Encounter | MED CTR LABORATORY | | | | | | [address] | | | | | | [place] | | | | | | [address] | | | | | | [phone] | | | +--------+ + + + [...]
[2019-08-09] MEDS ORDERED: EFFEXOR XR75 MG PO (01:53)
[2019-08-09] MEDS ORDERED: METFORMIN HCL1000 MG PO (01:54)
[2019-08-09] MEDS ORDERED: CARVEDILOL6.25 MG PO (01:54)
[2019-08-09] MEDS ORDERED: TRAMADOL HCL50 MG PO (15:06)
== END 2019-08-09 15:38 | disposition home or self-care (01) ==
LOC: ED 01:35
PROC: 0T9B70Z Drainage of Bladder with Drainage Device, Via Natural or Artificial Opening (ICD-10-PCS; principal; 2019-08-09)
DX: S86.911A Strain of unspecified muscle(s) and tendon(s) at lower leg level, right leg, initial encounter (principal); I10 Essential (primary) hypertension; E11.9 Type 2 diabetes mellitus without complications; Z96.651 Presence of right artificial knee joint; Z88.8 Allergy status to other drugs, medicaments and biological substances; Z79.899 Other long term (current) drug therapy; Z79.84 Long term (current) use of oral hypoglycemic drugs; W18.30XA Fall on same level, unspecified, initial encounter
CPT/HCPCS: 51702; 73502; 73560; 73700; 81001; 97162; 99284-25; A9270; J1170; J2405

== ENCOUNTER 2020-09-23 12:55 | Day surgery (SDC) | payer BC ==
[~2020-09-23] VITALS: Ht 154.9 cm; Wt 59.0 kg
[~2020-09-23 12:55] MED LIST: AIRDUO DIGIHAL1 EACH IH; CARVEDILOL6.25 MG PO; EFFEXOR XR75 MG PO; METFORMIN HCL1000 MG PO; TRAMADOL HCL50 MG PO
--- NOTE | 2020-09-23 15:05 | NUR ---
09/23/20 1505 Jordana Henderson 1501- PT ARRIVES TO PACU AWAKE AND TALKING. PT REPORTS NO PAIN OR NAUSEA. RESP EVEN AND UNLABORED. OXYGEN SAT HIGH 90'S TO 100% ON 3L VIA NC.
--- NOTE | 2020-09-23 17:24 | NUR ---
PT'S CONTACTED AND CAME TO PICK HER UP. PT AMBULATED TO A WHEELCHAIR AND WAS TAKEN TO THE FRONT ENTRANCE OF THE HOSPITAL. PT IS ABLE TO TRANSFER HERSELF TO HER VEHICLE. TOLERATED WELL.
--- NOTE | 2020-09-23 22:30 | OR ---
[facility] [address] [place], [place] [address] Signed DATE OF OPERATION: 09/23/2020 SURGEON: Chris Khoury MD PREOPERATIVE DIAGNOSIS: Colon surveillance. POSTOPERATIVE DIAGNOSIS: Polyps x2. PROCEDURE: Total colonoscopy to cecum with cold morcellation polypectomy x1 of right colon and cold snare polypectomy of sigmoid polyp. ANESTHESIA: Intravenous sedation, fentanyl 100 mcg and Versed 5 mg. INDICATION: This 75-year-old white woman is a patient of Dr. Thacker and was referred for surveillance colonoscopy. She has no family history of colon cancer and no symptoms currently of bleeding, diarrhea, or constipation. She last underwent colonoscopy in 2012, which was normal. She has a distant history of villous adenoma of the rectum in 2006. She had hypertrophied anal mucosa of the ileocecal valve at the time of her colonoscopy in 2012. She is admitted at this time to undergo colonoscopy, understanding the risks of bleeding, infection, and perforation. FINDINGS: There was no evidence of villous adenoma of the rectum. She did have a small polyp of the proximal ascending colon and another likely hyperplastic of the sigmoid. Both were excised completely and the remaining colon was normal. The prep was good. DESCRIPTION OF PROCEDURE: The patient was brought to the endoscopy suite and placed in lateral decubitus position, given intravenous sedation to the point of slurred speech and nystagmus with full cardiopulmonary monitoring. A digital rectal examination was normal. An Olympus video colonoscope was passed in the rectum and manipulated throughout the colon ultimately intubating the cecum itself. The ileocecal valve and appendiceal Electronically Signed By: CHRIS KHOURY MD 09/23/20 9149 PATIENT NAME: JENNIE NATHAN OPERATIVE REPORT DATE OF : 41 REPORT #: [id number] PHYSICIAN: CHRIS KHOURY MD PCP: ALFONSO THACKER MD REPORT IS CONFIDENTIAL AND NOT TO BE RELEASED WITHOUT AUTHORIZATION [facility] [address] [place], [place] [address] Signed orifice were normal. The scope was withdrawn and in the proximal ascending colon was what appeared to be a small polyp. This might represent a lymphoid aggregate as it is not entirely clear. Excision was undertaken removing the lesion completely. The scope was carefully withdrawn. The remaining colon was normal until the mid sigmoid at approximately 30 cm where a sessile polyp was noted. This most likely was hyperplastic, but uncertain as to its etiology, it was excised with cold snare technique. This was passed for pathology. Further withdraw of scope showed no other abnormality including on retroflexed view. The scope was removed and the patient was taken to the recovery room in good condition. CONCLUDING DIAGNOSIS: Polyps x2, possibly hyperplastic. PLAN: Recommend repeat colonoscopy in 5 years based on these findings. She will return to the ongoing care of Dr. Thacker otherwise.. MD UCHE Apple/CHASIDY /[id number] cc: Dr. Thacker Copies: ~ Electronically Signed By: CHRIS KHOURY MD 09/23/20 2230 PATIENT NAME: VENITAJENNIE OPERATIVE REPORT DATE OF : 41 REPORT #: [id number] PHYSICIAN: CHRIS KHOURY MD PCP: ALFONSO THACKER MD REPORT IS CONFIDENTIAL AND NOT TO BE RELEASED WITHOUT AUTHORIZATION
--- NOTE | 2020-09-24 15:20 | PATH ---
[facility] [address] [facility] [place], [place] [address] Signed SPECIMEN(S): A RIGHT POLYP SPECIMEN(S): B SIGMOID POLYP SPECIMEN SOURCE: A. RIGHT POLYP B. SIGMOID POLYP CLINICAL HISTORY: Screening colonoscopy. MICROSCOPIC DESCRIPTION: Histologic sections of all submitted blocks are examined by light microscopy. These findings, together with the gross examination, support the pathologic diagnosis. FINAL PATHOLOGIC DIAGNOSIS: A. Colon, right, polyp, polypectomy: - Tubular adenoma. - Negative for high-grade dysplasia or malignancy. B. Colon, sigmoid, polyp, polypectomy: - Hyperplastic polyp. - Negative for dysplasia or malignancy. NAL:cml:C2NR GROSS DESCRIPTION: Two specimens are received in two containers, labeled "BD." A. The specimen, labeled "BD, 1," and designated on the requisition "right colon polyp," is received in formalin and consists of one villalobos soft tissue fragment that measures 0.3 cm in greatest dimension. The specimen is entirely submitted in cassette (A1). B. The specimen, labeled "BD, 2," and designated on the requisition "sigmoid colon polyp," is received in formalin and consists of one villalobos soft tissue fragment that measures 0.4 cm in greatest dimension. The specimen is entirely submitted in cassette (B1). AT (under the direct supervision of a pathologist) The Gross Description was prepared using a voice recognition system. The report was reviewed for accuracy; however, sound-alike word errors, addition and/or deletions may occur. If there is any question about this report, please contact Client Services. PERFORMING LABORATORY: The technical component was performed by [id number], Saúl Euceda, PATIENT NAME: JENNIE NATHAN PATHOLOGY DATE OF : 41 REPORT #: [id number] PHYSICIAN: CRUZ MEDINA PCP: ALFONSO THACKER MD REPORT IS CONFIDENTIAL AND NOT TO BE RELEASED WITHOUT AUTHORIZATION [facility] [address] [place], [place] [address] [place] [address] (Group Sales Representative: Pamela Munoz MD; CLIA# [id number]). Professional interpretation was performed by [employer] [facility], [address] [address] (CLIA# [id number]). Diagnostician: Brigitte Mena MD Pathologist Electronically Signed 09/24/2020 Copies: ~ PATIENT NAME: JENNIE NATHAN PATHOLOGY DATE OF : 41 REPORT #: [id number] PHYSICIAN: CRUZ MEDINA PCP: ALFONSO THACKER MD REPORT IS CONFIDENTIAL AND NOT TO BE RELEASED WITHOUT AUTHORIZATION
== END 2020-09-23 16:01 | disposition home or self-care (01) ==
LOC: DS 12:55 → OPS 12:55
PROVIDERS: ATTEND Surgery
PROC: 0DBN8ZZ Excision of Sigmoid Colon, Via Natural or Artificial Opening Endoscopic (ICD-10-PCS; 2020-09-23)
PROC: 0DBH8ZZ Excision of Cecum, Via Natural or Artificial Opening Endoscopic (ICD-10-PCS; principal; 2020-09-23 14:15)
DX: Z12.11 Encounter for screening for malignant neoplasm of colon (principal); D12.2 Benign neoplasm of ascending colon; K63.5 Polyp of colon; J45.909 Unspecified asthma, uncomplicated; I10 Essential (primary) hypertension; G47.30 Sleep apnea, unspecified; Z86.010 Personal history of colon polyps; Z87.891 Personal history of nicotine dependence; Z98.84 Bariatric surgery status
CPT/HCPCS: 99153; G0500; J0690; J2250; J3010; J7121